=== PATIENT | male | born 1970 | race Caucasian/White ===

== ENCOUNTER 2018-06-04 10:54 | Emergency (ER) | payer OTHER ==
[~2018-06-04 10:54] MED LIST: CIPRO 500MG TA500 MG PO; FLAG500 PO; TRAMADOL50 MG PO
--- NOTE | 2018-06-04 12:17 | ULTRASOUND REPORT ---
EXAMINATION: US RETROPERITONEAL COMPLETE (RENAL) CLINICAL INFORMATION: Right flank pain. History of stones. Assess for hydronephrosis or stone. COMPARISON: CT scan of the abdomen and pelvis 10/27/2015. TECHNIQUE: Real-time ultrasound evaluation of the kidneys and bladder was obtained. FINDINGS: RIGHT KIDNEY: 10.7 x 5.6 x 5.7 cm (SAG x AP x TRV). The kidney is normal in size, contour, and echogenicity. Renal cortical thickness is normal. There is a 0.5 x 0.5 x 0.6 cm echogenic calculus at the midpole. There is no hydronephrosis, and there are no focal parenchymal lesions. LEFT KIDNEY: 10.8 x 4.5 x 5.1 cm (SAG x AP x TRV). The kidney is normal in size, contour, and echogenicity. Renal cortical thickness is normal. There is no hydronephrosis. There are multiple small echogenic foci, most consistent with multiple small calculi. There are no focal parenchymal lesions. BLADDER: The urinary bladder is moderately well distended. Bilateral ureteral jets are demonstrated. Prevoid bladder volume is 188 mL. The bladder is empty post void. IMPRESSION: 1. There are multiple nonobstructive calculi in the left kidney and there is a nonobstructive calculus in the right kidney. 2. There is no hydronephrosis.
[2018-06-04 12:19] LABS: ABSOLUTE BASOPHIL COUNT 0 /CUMM (0.0-0.2); ABSOLUTE EOSINOPHIL COUNT 0.1 /CUMM (0.0-0.7); ABSOLUTE GRANULOCYTE CT 10.5 /CUMM (1.4-6.5); ABSOLUTE MONOCYTE COUNT 0.4 /CUMM (0.10-0.60); BASOPHIL % 0.3 % (0.0-2.0); EOSINOPHIL % 1.1 % (0-5); HEMATOCRIT 44.8 % (42-52); MEAN CORPUSCULAR HGB 30.8 PG (27.0-31.0); MEAN CORPUSCULAR HGB CONC 33.3 G/DL (33.0-37.0); MEAN CORPUSCULAR VOLUME 92.4 FL (80.0-94.0); MEAN PLATELET VOLUME 8.4 FL (7.4-10.4); PLATELET COUNT 246 /CUMM (130-400); RBC DISTRIBUTION WIDTH 13.3 % (11.5-14.5); RED BLOOD CELL CT 4.85 /CUMM (4.70-6.10); WHITE BLOOD CELL COUNT 12.1 /CUMM (4.8-10.8)
[2018-06-04 12:38] LABS: GRANULOCYTE % 86.8 % (42.2-75.2)
[2018-06-04] MEDS ORDERED: ZOFRAN ODT4 M1 SL (13:09)
[2018-06-04] MEDS ORDERED: PERCOCET 5-3251 EACH PO (13:09)
[2018-06-04] MEDS ORDERED: FLOMAX0.4 M1 PO (13:09)
[2018-06-04] MEDS ORDERED: IBUPROFEN800 M1 PO (13:09)
--- NOTE | 2018-06-04 13:11 | ED GENERAL ADULT ---
History of Present Illness General Chief Complaint: Abdominal Pain/Flank Pain Stated Complaint: BIBA, RIGHT FLANK PAIN, X 3 HRS Source: patient Exam Limitations: no limitations Vital Signs & Intake/Output Vital Signs & Intake/Output Vital Signs Date Time Temp Pulse Resp B/P B/P Pulse O2 O2 Flow FiO2 Mean Ox Delivery Rate 06/04 1311 97.7 62 15 127/79 06/04 1059 97.7 62 15 127/79 100 Room Air Room Air Allergies Coded Allergies: No Known Allergies (06/04/18) Reconcile Medications Ciprofloxacin (Cipro) 500 MG TAB 1 TAB PO Q12 DIVERTICULITIS Ibuprofen 800 MG TABLET 1 TAB PO TID PRN pain Ketorolac Tromethamine 10 MG TABLET 1 TAB PO Q6P PRN pain Metronidazole (Flagyl) 500 MG TAB 500 MG PO Q6 DIVERTICULITIS Ondansetron (Zofran Odt) 4 MG TAB.RAPDIS 1 TAB SL TID PRN nausea Oxycodone HCl/Acetaminophen (Percocet 5-325 MG Tablet) 5 MG-325 MG TABLET 1 TAB PO Q6 PRN pain Tamsulosin HCl (Flomax) 0.4 MG CAP.ER.24H 1 CAP PO DAILY renal stone TRAMADOL HCL (Tramadol) 50 MG TAB 1 TAB PO Q4-6 PRN PAIN Triage Note: PT BIBA FROM HOME FOR R SIDED FLANK PAIN. HX OF KIDNEY STONES IN PAST. THIS PAIN FEELS THE SAME. SYMPTOMS STARTED AT 0800. Triage Nurses Notes Reviewed? yes Onset: Gradual Duration: hour(s): Timing: constant HPI: 48-year-old male with a history of renal stones presenting with right flank pain and hematuria since 8:00 this morning. States the pain initially came on gradually but has rapidly become more severe. Had transient nausea earlier, no vomiting. Has not taken anything for pain relief. States that the pain feels like his prior renal stones. Denies fevers, vomiting, abdominal pain, dysuria. States that he has spontaneously passed all of his renal stones with the exception of one several years ago that required lithotripsy. Is not currently followed by urology, was lost to follow-up several years ago. Past History Travel History Traveled to [place] past 21 day No Medical History Any Pertinent Medical History? see below for history Renal: nephrolithiasis Surgical History Surgical History: N Psychosocial History What is your primary language [place] Tobacco Use: Never used ETOH Use: denies use Illicit Drug Use: denies illicit drug use Family History Hx Contributory? No Review of Systems Review of Systems Constitutional: Reports: no symptoms. EENTM: Reports: no symptoms. Respiratory: Reports: no symptoms. Cardiovascular: Reports: no symptoms. GI: Reports: no symptoms. Genitourinary: Reports: see HPI. Musculoskeletal: Reports: no symptoms. Skin: Reports: no symptoms. Neurological/Psychological: Reports: no symptoms. Hematologic/Endocrine: Reports: no symptoms. Immunologic/Allergic: Reports: no symptoms. All Other Systems: Reviewed and Negative Physical Exam Physical Exam General Appearance: well developed/nourished, no apparent distress, alert, awake , comfortable Comments: Gen.: Well-nourished, well-developed, no acute distress. Head: Normocephalic, atraumatic. Eyes: Normal inspection bilaterally Ears: Normal inspection bilaterally Nose: Normal inspection Neck: Normal inspection Lungs: clear to auscultation bilaterally, normnal breath sounds Heart: regular rate and rhythm Abdomen: soft and non-tender Back: Normal inspection, no CVA tenderness Extremities: Normal inspection Neurologic: alert and oriented x3, steady gait Skin: warm and dry Psychiatric: Normal mood and affect, no apparent delusions or hallucinations, behavior appropriate Core Measures ACS in differential dx? No CVA/TIA Diagnosis: No Sepsis Present: No Sepsis Focused Exam Completed? No Progress Differential Diagnoses I considered the following diagnoses in my evaluation of the patient: [ Ureterolithiasis versus nephrolithiasis versus hydronephrosis versus UTI versus pyelonephritis] Plan of Care: Orders Procedure Date/time Status URINALYSIS 06/04 1105 Complete COMPREHENSIVE METABOLIC PANEL 06/04 1105 Complete CBC WITHOUT DIFFERENTIAL 06/04 110 Complete Laboratory Tests 06/04/18 1230: Urine Color PINK H, Urine Clarity CLEAR, Urine pH 6.0, Ur Specific [place] 1.010, Urine Protein NEG, Urine Ketones NEG, Urine Nitrite NEG, Urine Bilirubin NEG, Urine Urobilinogen 0.2, Ur Leukocyte Esterase NEG, Ur Microscopic SEDIMENT EXAMINED, Urine RBC >75 H, Urine WBC RARE, Urine Hemoglobin LARGE H, Urine Glucose NEG 06/04/18 1200: Anion Gap 9, Estimated GFR > 60, BUN/Creatinine Ratio 16.4, Glucose 107 H, Calcium 10.2, Total Bilirubin 1.3, AST 51, ALT 93 H, Alkaline Phosphatase 72, Total Protein 7.7, Albumin 4.6, Globulin 3.1, Albumin/Globulin Ratio 1.5, CBC w Diff NO MAN DIFF REQ, RBC 4.85, MCV 92.4, MCH 30.8, MCHC 33.3, RDW 13.3, MPV 8.4 , Gran % 86.8 H, Lymphocytes % 8.3 L, Monocytes % 3.5, Eosinophils % 1.1, Basophils % 0.3, Absolute Granulocytes 10.5 H, Absolute Lymphocytes 1.0 L, Absolute Monocytes 0.4, Absolute Eosinophils 0.1, Absolute Basophils 0 UA showed large amount of blood, not suspicious for infection. Kidney function is within normal limits. Mild leukocytosis to 12. US IMPRESSION: 1. There are multiple nonobstructive calculi in the left kidney and there is a nonobstructive calculus in the right kidney. 2. There is no hydronephrosis. Discussed with Dr. Schneider and will see patient in follow-up. Discharge home with Rx Zofran, Toradol, Flomax. Counseled on supportive care and given strict return precautions. Patient had been sent a prescription for ibuprofen and Percocet to the pharmacy. Patient is declining both medications and requesting p.o. ketorolac. I called the pharmacy to cancel his ibuprofen and Percocet prescription. I resent a prescription for oral ketorolac. Initial ED EKG: none Departure Departure Disposition: HOME OR SELF CARE Condition: Stable Clinical Impression Primary Impression: Ureterolithiasis Referrals: Wyatt LAN,Russ Arriaga MD,Tim (PCP/Family) Additional Instructions: Use toradol as needed for pain. Use Zofran as needed for nausea. Take Flomax daily to help facilitate passage of a kidney stone. Follow-up with Dr. Schneider from urology for reevaluation. Return to the emergency department for any new or worsening symptoms. Departure Forms: Customer Survey General Discharge Information Prescriptions: Current Visit Scripts Tamsulosin HCl (Flomax) 1 CAP PO DAILY #30 CAP Ibuprofen 1 TAB PO TID PRN pain #60 TAB Oxycodone HCl/Acetaminophen (Percocet 5-325 MG Tablet) 1 TAB PO Q6 PRN pain #10 TAB Ondansetron (Zofran Odt) 1 TAB SL TID PRN nausea #20 TAB Ketorolac Tromethamine 1 TAB PO Q6P PRN pain #30 TAB Critical Care Note Critical Care Note Critical Care Time: non-applicable
[2018-06-04] MEDS ORDERED: KETOROLAC TROME10 M1 PO (13:18)
[2018-06-04 13:19] VITALS: BP 132/83
== END 2018-06-04 13:20 ==
LOC: ERH 10:54
PROVIDERS: Physician Assistant
DX: N20.1 Calculus of ureter (principal); R31.9 Hematuria, unspecified; R10.9 Unspecified abdominal pain
CPT/HCPCS: 76775; 81001; 96361; 96374; J1885